=== PATIENT | female | born 1980 | race Two or more races ===

== ENCOUNTER 2017-07-30 09:29 | Day surgery (SDC) | payer MEDICAID ==
[2017-07-30 09:53] VITALS: BMI 34.9
[2017-07-30 10:14] VITALS: O2SAT 100
[2017-07-30] MEDS ORDERED: Midazolam 2 MG/2 ML VIAL ONE (11:41)
[2017-07-30] MEDS ORDERED: Propofol 10 mg/ml Inj (20 ML) ONE (11:41)
[2017-07-30] MEDS ORDERED: Lactated Ringer's 500 ML IV ONE (11:51)
[2017-07-30 12:27] VITALS: TEMP 98
[2017-07-30 13:10] VITALS: RESP 15
[2017-07-30 13:15] VITALS: BP 148/70; PULSE 65
== END 2017-07-30 13:13 | disposition home or self-care (01) ==
LOC: C.ENDO 09:29
PROVIDERS: ATTEND Internal Medicine Gastroenterology
DX: R13.10 Dysphagia, unspecified (principal)
CPT/HCPCS: 43239; 84703; 88305; J2250; J2704; J7120